=== PATIENT | female | born 1985 | race Two or more races ===

== ENCOUNTER 2023-04-27 17:18 | Inpatient (IN) | payer MEDICAID ==
[~2023-04-27] VITALS: Ht 172.7 cm; Wt 63.5 kg
[2023-04-27] VITALS (7 sets, daily range): BP systolic 116–142; BP diastolic 54–87; PULSE 66–91; RESP 18–20; TEMP 98.6; O2SAT 97–98
[2023-04-27] MEDS ORDERED: ceFAZolin 2 GM/D5W100ml 100 ML IV ONE (17:45)
[2023-04-27] MEDS ORDERED: LACTATED RINGER'S 1,000 ML IV ONE (17:45)
[2023-04-27 18:46] LABS: Amphetamine Screen, Urine Neg (NEGATIVE); Barbiturate Scree,Urine Neg (NEGATIVE)
[2023-04-27 18:47] LABS: Benzodiazephine Screen, Urine Neg (NEGATIVE); Cannabinoid Screen, Urine Neg (NEGATIVE); Cocaine Screen, Urine Neg (NEGATIVE); Opiate Scree,Urine Neg (NEGATIVE); Phencyclidine Screen, Urine Neg (NEGATIVE); Urine Bacteria FEW /hpf (None Seen); Urine Blood Negative /uL (Negative); Urine Clarity Clear (Clear); Urine Color Yellow (Yellow); Urine Protein, UAD Negative (Negative); Urine Specific Gravity 1.014 (1.001-1.035); Urine Urobilinogen Normal (Negative); Urine WBC 2 /hpf (0 - 5)
[2023-04-27 18:49] LABS: Basophils # (auto) 0 10 ^3/uL (0-0.2); Basophils % (auto) 0.2 % (0.0-2.0); Eosinophils # (auto) 0 10 ^3/uL (0-0.8); Eosinophils % (auto) 0.1 % (0.0-7.0); Hematocrit 37.8 % (36.0-46.0); Lymphocytes # (auto) 1.4 10 ^3/uL (0.4-5.4); Lymphocytes % (auto) 18.8 % (10.0-50.0); Mean Corpuscular Hemoglobin 31.2 pg (28.0-32.0); Mean Corpuscular Hgb Conc. 34.3 g/dL (32.0-36.0); Mean Corpuscular Volume 90.9 fL (80.0-100.0); Monocytes # (auto) 0.5 10 ^3/uL (0-1.3); Neutrophils # (auto) 5.5 10 ^3/uL (1.6-8.6); Neutrophils % (auto) 73.9 % (37.0-80.0); Nucleated Red Blood Cells % 0.1 %; Red Blood Cells 4.16 10^6/uL (4.0-5.20); White Blood Cell 7.4 10^3/uL (4.4-10.8)
[2023-04-27 18:55] LABS: Alanine Aminotransferase 20 U/L (7-40); Albumin 3.9 g/dL (3.2-4.8); Alkaline Phosphatase 147 U/L (46-116); Anion Gap 9.7 (5-15); Aspartate Aminotransferase 22 U/L (13-40); BUN/Creatinine Ratio 8.6 (10.0-20.0); Blood Urea Nitrogen 5 mg/dL (9-23); Calcium 9.3 mg/dL (8.5-10.1); Carbon Dioxide 22.3 mmol/L (20-30); Chloride 104 mmol/L (98-107); Glucose 79 mg/dL (74-106); Potassium 3.7 mmol/L (3.5-5.1); Sodium 136 mmol/L (136-145)
[2023-04-27 18:56] LABS: Fern Testing Positive
[2023-04-27 18:56] LABS: Bilirubin, Total 1.3 mg/dL (0.2-1.0); Total Protein 6.9 g/dL (5.7-8.2)
[2023-04-27] MEDS: LACTATED RINGER'S 1,000 ML IV SCH (18:57)
[2023-04-27 19:12] LABS: INR 0.98 (0.9-1.15); Partial Thromboplastin Time 25.9 SEC (24.5-34.5); Prothrombin Time 10.3 sec (9.3-11.8)
[2023-04-27] MEDS ORDERED: LACT. RINGERS/OXYTOCIN 20UNITS 1,000 ML IV ONE (19:15)
[2023-04-27] MEDS ORDERED: ePHEDrine SULFATE 50 MG/ML AMP IV PRN (19:15)
[2023-04-27] MEDS ORDERED: ONDANSETRON HCL 4 MG/2 ML VIAL IV PRN ×2 (19:15→21:15)
[2023-04-27] MEDS ORDERED: PERCOT PO (19:17)
[2023-04-27] MEDS ORDERED: DOCU-94 PO (19:17)
[2023-04-27] MEDS ORDERED: TETRACAINE 1% INJ 2 ML VIAL IJ ONE (19:23)
[2023-04-27] MEDS ORDERED: MORPHINE SULF PF 5 MG/10 ML VIAL ONE (19:26)
[2023-04-27] MEDS ORDERED: SODIUM CITR/CITRIC ACID ORAL SOLN 30 ML ONE (19:28)
[2023-04-27 19:42] LABS: Platelet Estimate Decreased; RBC Morphology Normal
[2023-04-27] MEDS ORDERED: MIDAZOLAM HCL 2MG/2ML 2ml VIAL (1mg/ml) ONE (20:04)
[2023-04-27] MEDS ORDERED: ONDANSETRON HCL 4 MG/2 ML VIAL ONE (20:54)
[2023-04-27] MEDS ORDERED: oxyTOCIN 10 UNIT/ML 10ML VIAL ONE (21:03)
[2023-04-27] MEDS ORDERED: HYDROmorphone HCL 2 MG/ML VL/or syr IV PRN (21:15)
[2023-04-27] MEDS ORDERED: NALOXONE HCL 0.4 MG/ML VIAL IV PRN (21:15)
[2023-04-27] MEDS ORDERED: DexAMETHasone SOD PHOS 10MG/1ML VIAL INJ IV PRN (21:15)
[2023-04-27] MEDS ORDERED: NALBUPHINE HCL 10 MG/1ml INJECTION SUBCUT ONE (21:15)
[2023-04-27] MEDS ORDERED: diphenhdrAMINE HCL 50 MG/1 ML VL IV PRN (21:15)
[2023-04-27] MEDS ORDERED: ACETAMINOPHEN IV 1000 MG/100ML (10MG/ML) IV PRN ×2 (22:30→23:30)
[2023-04-27 23:26] LABS: Basophils # (auto) 0 10 ^3/uL (0-0.2); Basophils % (auto) 0.2 % (0.0-2.0); Eosinophils # (auto) 0 10 ^3/uL (0-0.8); Eosinophils % (auto) 0.1 % (0.0-7.0); Hematocrit 38.6 % (36.0-46.0); Hemoglobin 13.1 g/dL (12.2-16.2); Lymphocytes # (auto) 1.5 10 ^3/uL (0.4-5.4); Mean Corpuscular Volume 91.2 fL (80.0-100.0); Monocytes # (auto) 0.5 10 ^3/uL (0-1.3); Monocytes % (auto) 3.6 % (0.0-12.0); Neutrophils # (auto) 12.9 10 ^3/uL (1.6-8.6); Neutrophils % (auto) 86.1 % (37.0-80.0); Red Blood Cells 4.23 10^6/uL (4.0-5.20); Red Cell Distribution Width 12.8 % (11.8-14.3)
[2023-04-28] VITALS (24 sets, daily range): BP systolic 99–122; BP diastolic 62–115; PULSE 73–117; RESP 16–18; TEMP 98.1–98.6; O2SAT 95–100
[2023-04-28] MEDS: ACETAMINOPHEN IV 1000 MG/100ML (10MG/ML) IV PRN ×2 (00:19→12:10)
[2023-04-28] MEDS: LACTATED RINGER'S 1,000 ML IV SCH (00:19)
[2023-04-28] MEDS: ceFAZolin 1GM/50ML 50 ML IV SCH ×3 (04:02→20:56)
[2023-04-28 06:41] LABS: Basophils # (auto) 0 10 ^3/uL (0-0.2); Basophils % (auto) 0.3 % (0.0-2.0); Eosinophils # (auto) 0 10 ^3/uL (0-0.8); Eosinophils % (auto) 0.1 % (0.0-7.0); Hematocrit 31.6 % (36.0-46.0); Hemoglobin 10.6 g/dL (12.2-16.2); Lymphocytes # (auto) 1.2 10 ^3/uL (0.4-5.4); Lymphocytes % (auto) 7.4 % (10.0-50.0); Mean Corpuscular Hemoglobin 31.2 pg (28.0-32.0); Mean Corpuscular Hgb Conc. 33.6 g/dL (32.0-36.0); Mean Corpuscular Volume 92.7 fL (80.0-100.0); Monocytes # (auto) 0.5 10 ^3/uL (0-1.3); Monocytes % (auto) 3.3 % (0.0-12.0); Neutrophils # (auto) 14.4 10 ^3/uL (1.6-8.6); Neutrophils % (auto) 88.9 % (37.0-80.0); Red Blood Cells 3.41 10^6/uL (4.0-5.20); White Blood Cell 16.2 10^3/uL (4.4-10.8)
[2023-04-28] MEDS ORDERED: SODIUM CITR/CITRIC ACID ORAL SOLN 30 ML PO SCH (09:00)
[2023-04-28] MEDS: KETOROLAC TROMETH 30 MG/ML 1ML VIAL IV PRN ×2 (10:00→20:07)
[2023-04-28] MEDS ORDERED: LACTATED RINGER'S 1,000 ML IV SCH (14:00)
[2023-04-28] MEDS ORDERED: ceFAZolin 1GM/50ML 50 ML IV SCH (20:30)
[2023-04-28] MEDS ORDERED: BISACODYL 10 MG RECT SUPP PR PRN (20:45)
[2023-04-28] MEDS ORDERED: HYDROcodone-ACET 5/325MG TAB PO PRN (20:45)
[2023-04-28] MEDS: DOCUSATE SOD 100 MG CAP PO SCH (22:01)
[2023-04-28] MEDS: SIMETHICONE 80 MG CHEWABLE TABLET PO SCH (22:02)
[2023-04-29 02:58] VITALS: BP 114/77; PULSE 89; RESP 17; TEMP 98.4; O2SAT 97
[2023-04-29] MEDS: SIMETHICONE 80 MG CHEWABLE TABLET PO SCH ×4 (06:00→22:37)
[2023-04-29 06:47] LABS: Basophils # (auto) 0 10 ^3/uL (0-0.2); Eosinophils # (auto) 0.1 10 ^3/uL (0-0.8); Hemoglobin 7.3 g/dL (12.2-16.2); Neutrophils # (auto) 11.1 10 ^3/uL (1.6-8.6); White Blood Cell 13.1 10^3/uL (4.4-10.8)
[2023-04-29 06:50] LABS: Basophils % (auto) 0.1 % (0.0-2.0); Eosinophils % (auto) 0.6 % (0.0-7.0); Hematocrit 21.6 % (36.0-46.0); Lymphocytes # (auto) 1.2 10 ^3/uL (0.4-5.4); Lymphocytes % (auto) 8.9 % (10.0-50.0); Mean Corpuscular Hemoglobin 31.4 pg (28.0-32.0); Mean Corpuscular Hgb Conc. 33.9 g/dL (32.0-36.0); Mean Corpuscular Volume 92.8 fL (80.0-100.0); Monocytes # (auto) 0.7 10 ^3/uL (0-1.3); Monocytes % (auto) 5.3 % (0.0-12.0); Neutrophils % (auto) 85.1 % (37.0-80.0); Red Blood Cells 2.33 10^6/uL (4.0-5.20); Red Cell Distribution Width 13.2 % (11.8-14.3)
[2023-04-29 07:06] LABS: RPR Non Reactive (Non Reactive)
[2023-04-29 07:30] VITALS: BP 112/82; PULSE 101; RESP 16; TEMP 98.6; O2SAT 95
[2023-04-29] MEDS: DOCUSATE SOD 100 MG CAP PO SCH ×2 (10:00→22:03)
[2023-04-29] MEDS: DOCUSATE CALCIUM 240 MG CAP PO SCH (10:00)
[2023-04-29] MEDS: IBUPROFEN 800 MG TAB PO PRN ×2 (10:31→18:58)
[2023-04-29 11:16] LABS: Platelet Estimate Decreased
[2023-04-29 11:30] VITALS: BP 120/78; PULSE 97; RESP 16; TEMP 98.3; O2SAT 99
[2023-04-29 15:30] VITALS: BP 113/75; PULSE 92; RESP 16; TEMP 98.4; O2SAT 99
[2023-04-29] MEDS: FERROUS SULFATE 325mg EC TAB PO SCH (18:46)
[2023-04-29 18:50] VITALS: BP 117/74; PULSE 95; RESP 19; TEMP 98.2; O2SAT 99
[2023-04-29 22:35] VITALS: BP 114/74; PULSE 97; RESP 18; TEMP 98.3; O2SAT 99
[2023-04-30] MEDS: HYDROcodone-ACET 5/325MG TAB PO PRN ×2 (00:34→08:25)
[2023-04-30 02:35] VITALS: BP 119/78; PULSE 89; RESP 17; TEMP 98.5; O2SAT 97
[2023-04-30 07:15] VITALS: BP 122/88; PULSE 97; RESP 16; TEMP 98.1; O2SAT 100
[2023-04-30] MEDS: DOCUSATE SOD 100 MG CAP PO SCH (08:24)
[2023-04-30] MEDS: DOCUSATE CALCIUM 240 MG CAP PO SCH (08:25)
[2023-04-30] MEDS: FERROUS SULFATE 325mg EC TAB PO SCH (08:25)
[2023-04-30] MEDS: SIMETHICONE 80 MG CHEWABLE TABLET PO SCH (08:25)
[2023-05-01 21:06] LABS: Treponema pallidum Ab (FTA-Ab) Non Reactive (Non Reactive)
== END 2023-04-30 11:11 | disposition home or self-care (01) | DRG 540 ==
LOC: LDRP 17:18 → UNDOADMOB 17:18 → LDRP 17:40 → INTOOBSV 17:40 → OBSVTOIN 17:40 → LDRP 20:42 → UNDODISIN 04-30 10:55 → EDSTATUS 05-02 12:43
PROVIDERS: ADMIT Obstetrics & Gynecology; ATTEND Obstetrics & Gynecology
PROC: 10D00Z1 Extraction of Products of Conception, Low, Open Approach (ICD-10-PCS; principal; 2023-04-27 19:30)
DX: O99.12 Other diseases of the blood and blood-forming organs and certain disorders involving the immune mechanism complicating childbirth (principal); D69.6 Thrombocytopenia, unspecified; O34.219 Maternal care for unspecified type scar from previous cesarean delivery; Z37.0 Single live birth; Z3A.38 38 weeks gestation of pregnancy
CPT/HCPCS: 36415; 59025; 76805; 80053; 80307; 81001; 81002; 84112; 85025; 85610; 85730; 86592; 86703; 86850; 86900; 86901; 94760; 94762; 96360; 96361; 96366; G0378; J0131; J0690; J1885; J2250; J2405; J2590

== ENCOUNTER → 2024-11-04 | Outpatient (CLI) | payer MEDICAID ==
[~2024-11-04] MED LIST: DOCU-94 PO; PERCOT PO
[2024-11-04 11:14] LABS: Basophils # (auto) 0 10 ^3/uL (0-0.2); Basophils % (auto) 0.6 % (0.0-2.0); Eosinophils # (auto) 0.1 10 ^3/uL (0-0.8); Eosinophils % (auto) 1.4 % (0.0-7.0); Hematocrit 43.3 % (36.0-46.0); Hemoglobin 14.6 g/dL (12.2-16.2); Lymphocytes # (auto) 1.5 10 ^3/uL (0.4-5.4); Lymphocytes % (auto) 26.7 % (10.0-50.0); Mean Corpuscular Hemoglobin 29.6 pg (28.0-32.0); Mean Corpuscular Hgb Conc. 33.7 g/dL (32.0-36.0); Mean Corpuscular Volume 87.8 fL (80.0-100.0); Monocytes # (auto) 0.4 10 ^3/uL (0-1.3); Neutrophils # (auto) 3.7 10 ^3/uL (1.6-8.6); Neutrophils % (auto) 64.3 % (37.0-80.0); Nucleated Red Blood Cells % 0.1 %; Platelet Count (auto) 128 10^3/uL (140-450); Red Blood Cells 4.93 10^6/uL (4.0-5.20); Red Cell Distribution Width 12.8 % (11.8-14.3); White Blood Cell 5.8 10^3/uL (4.4-10.8)
[2024-11-04 11:27] LABS: Urine Bacteria FEW /hpf (None Seen); Urine Blood Negative /uL (Negative); Urine Clarity Clear (Clear); Urine Color Light-Yellow (Yellow); Urine Protein, UAD Negative (Negative); Urine Specific Gravity 1.015 (1.001-1.035); Urine Squamous Epithelial Cell FEW /hpf (<5); Urine Urobilinogen Normal (Negative); Urine WBC 1 /HPF (0-5); Urine pH 5.5 (5.0-9.0)
[2024-11-04 11:36] LABS: % Iron Saturation 19.5 % (15-50)
[2024-11-04 11:38] LABS: Folate (Folic Acid) 18.85 ng/mL (>5.38)
[2024-11-04 11:39] LABS: Alanine Aminotransferase 12 U/L (7-40); Albumin 4.6 g/dL (3.2-4.8); Alkaline Phosphatase 57 U/L (46-116); Anion Gap 7 (5-15); BUN/Creatinine Ratio 16.9 (10.0-20.0); Bilirubin, Total 0.7 mg/dL (0.2-1.0); Blood Urea Nitrogen 13 mg/dL (9-23); Calcium 9.7 mg/dL (8.7-10.4); Carbon Dioxide 26 mmol/L (20-31); Chloride 105 mmol/L (98-107); Cholesterol 188 mg/dL (< 200); Glucose 95 mg/dL (74-106); HDL Cholesterol 41 mg/dL (40-59); Potassium 4.3 mmol/L (3.5-5.1); Sodium 138 mmol/L (136-145); Total Protein 7.8 g/dL (5.7-8.2); Triglycerides 102 mg/dL (< 150)
[2024-11-04 11:43] LABS: Follicle Stimulating Hormone 4.02 IU/L (SEE BELOW); Leuteinizing Hormone 1.6 IU/L
[2024-11-04 11:47] LABS: Aspartate Aminotransferase 10 U/L (13-40); LDL Cholesterol 139 mg/dL (< 100)
[2024-11-04 14:17] LABS: Wright Stain Ready for Review
== END | disposition home or self-care (01) ==
LOC: LAB 10:38
PROVIDERS: ATTEND Nurse Practitioner Family
DX: E55.9 Vitamin D deficiency, unspecified (principal); E78.5 Hyperlipidemia, unspecified; D64.9 Anemia, unspecified; D69.6 Thrombocytopenia, unspecified
CPT/HCPCS: 36415; 80053; 80061; 81001; 82306; 82607; 82746; 83001; 83002; 83036; 83540; 83550; 85025